=== PATIENT | female | born 1985 | race Caucasian/White ===

== ENCOUNTER 2017-02-07 01:11 | Emergency (ER) | payer OTHER ==
[~2017-02-07] VITALS: Ht 160 cm; Wt 74.0 kg
[2017-02-07 01:17] VITALS: Ht 160 cm; Wt 74.0 kg
[2017-02-07] MEDS ORDERED: SOD CHLORIDE 0.9% 1,000 ML IV STA (01:29)
[2017-02-07] MEDS ORDERED: KETOROLAC 30 MG INJ IV STA (01:29)
[2017-02-07] MEDS ORDERED: ONDANSETRON 4 MG INJ IV STA (01:29)
[2017-02-07 02:14] LABS: BASOPHIL # 0.1 10^3/ul (0.0-0.1); BASOPHILS % 0.5 % (0.0-2.0); EOSINOPHILS # 0.2 10^3/ul (0.0-0.5); EOSINOPHILS % 1.8 % (0.0-7.0); HEMOGLOBIN 13.3 g/dl (12.0-16.0); LYMPHOCYTES # 3.4 10^3/ul (0.8-2.9); LYMPHOCYTES % 31.5 % (15.0-51.0); MEAN CORPUSCULAR HEMOGLOBIN 30.4 pg (29.0-33.0); MEAN CORPUSCULAR HGB CONC 33.3 g/dl (32.0-37.0); MEAN CORPUSCULAR VOLUME 91.3 fl (82.0-101.0); MEAN PLATELET VOLUME 11.4 fl (7.4-10.4); MONOCYTE # 0.8 10^3/ul (0.3-0.9); NEUTROPHIL # 6.2 10^3/ul (1.6-7.5); NEUTROPHILS % 57.9 % (39.0-77.0); PLATELET COUNT 257 10^3/UL (140-415); RED BLOOD COUNT 4.38 10^6/ul (4.20-5.40); RED CELL DISTRIBUTION WIDTH 13.8 % (11.5-14.5); WHITE BLOOD COUNT 10.8 10^3/ul (4.8-10.8)
[2017-02-07 02:24] LABS: ADD UMIC NO; UR ASCORBIC ACID NEGATIVE (NEGATIVE); UR BILIRUBIN (Dip) NEGATIVE (NEGATIVE); UR BLOOD (Dip) NEGATIVE (NEGATIVE); UR CLARITY CLEAR (CLEAR); UR COLOR STRAW (YELLOW); UR GLUCOSE (Dip) NEGATIVE (NEGATIVE); UR KETONES (Dip) NEGATIVE (NEGATIVE); UR LEUKOCYTE ESTERASE (Dip) NEGATIVE Leu/ul (NEGATIVE); UR NITRITE (Dip) NEGATIVE (NEGATIVE); UR SPECIFIC GRAVITY (Dip) 1.009 (1.003-1.030); UR TOTAL PROTEIN (Dip) NEGATIVE (NEGATIVE); UR UROBILINOGEN (Dip) NEGATIVE (NEGATIVE)
[2017-02-07 02:34] LABS: ALBUMIN 4.4 g/dl (3.3-4.9); ALBUMIN/GLOBULIN RATIO 1.29; BILIRUBIN,INDIRECT 0.4 mg/dl (0-1.1); BILIRUBIN,TOTAL 0.4 mg/dl (0.2-1.3); CALCIUM 9.3 mg/dl (8.4-10.2); CREATININE 0.68 mg/dl (0.44-1.00); POTASSIUM 3.8 mmol/L (3.5-5.1); TOTAL PROTEIN 7.8 g/dl (6.1-8.1)
--- NOTE | 2017-02-07 02:42 | ERD ---
ER Documentation Chief Complaint Date/Time DATE: 02/07/17 TIME: 02:40 Chief Complaint LLQ PAIN X2DAYS HPI This is a 32-year-old female who presents to the emergency room for evaluation of abdominal pain. The patient states she has had abdominal pain for the past 2 hours and describes as a crampy feeling localized all of her abdomen associated with mild nausea. No vomiting or diarrhea. This patient's is here who states that they ate [employer] food in the patient's did have diarrhea and some abdominal cramping. ROS All systems reviewed and are negative except as per history of present illness. Allergies Allergies: Coded Allergies: No Known Allergy (Verified Allergy, Mild, NONE, 09/16/06) PMhx/Soc Medical and Surgical Hx: pt denies Medical Hx, pt denies Surgical Hx History of Surgery: No Anesthesia Reaction: No Hx Neurological Disorder: No Hx Respiratory Disorders: No Hx Cardiac Disorders: No Hx Psychiatric Problems: No Hx Miscellaneous Medical Probl: No Hx Alcohol Use: No Hx Substance Use: No Hx Tobacco Use: No Smoking Status: Never smoker Physical Exam Vitals Vital Signs Date Time Temp Pulse Resp B/P Pulse Ox O2 Delivery O2 Flow Rate FiO2 02/07/17 02:01 98.8 62 18 109/68 100 02/07/17 01:17 97.9 63 16 121/77 100 Physical Exam INITIAL VITAL SIGNS: Reviewed by me GENERAL: The patient is well developed and appropriate for usual state of health in no apparent distress HEENT: Pupils equal, round, and reactive to light. EOMI. There is no scleral icterus. NECK: C-spine is soft and supple, there is no meningismus. There is no cervical lymphadenopathy. LUNGS: Clear to auscultation bilaterally. There are no rales, wheezes or rhonchi. HEART: Regular rate and rhythm, no murmurs, clicks, rubs or gallops. ABDOMEN: Mild epigastric tenderness to palpation, nondistended. There are bowel sounds in all four quadrants. No rebound or guarding. EXTREMITIES: There is no peripheral cyanosis or edema. No focal swelling or erythema. NEUROLOGICAL: The patient moves all four extremities with 5/5 strength. Cranial nerves II - XII are intact. Normal gait. Alert and oriented SKIN: There is no apparent rash or petechiae. HEME/LYMPHATIC: There is no evidence of excessive bruising or lymphedema. PSYCHIATRIC: The patient does not appear anxious or depressed. Result Diagram: 02/07/17 0135 02/07/17 0135 Results 24 hrs Laboratory Tests Test 02/07/17 01:35 White Blood Count 10.810^3/ul Red Blood Count 4.3810^6/ul Hemoglobin 13.3g/dl Hematocrit 40.0% Mean Corpuscular Volume 91.3fl Mean Corpuscular Hemoglobin 30.4pg Mean Corpuscular Hemoglobin Concent 33.3g/dl Red Cell Distribution Width 13.8% Platelet Count 87907^3/UL Mean Platelet Volume 11.4fl Neutrophils % 57.9% Lymphocytes % 31.5% Monocytes % 7.0% Eosinophils % 1.8% Basophils % 0.5% Nucleated Red Blood Cells % 0.0/100WBC Neutrophils # 6.210^3/ul Lymphocytes # 3.410^3/ul Monocytes # 0.810^3/ul Eosinophils # 0.210^3/ul Basophils # 0.110^3/ul Nucleated Red Blood Cells # 0.010^3/ul Urine Color STRAW Urine Clarity CLEAR Urine pH 8.0 Urine Specific Hunter 1.009 Urine Ketones NEGATIVEmg/dL Urine Nitrite NEGATIVEmg/dL Urine Bilirubin NEGATIVEmg/dL Urine Urobilinogen NEGATIVEmg/dL Urine Leukocyte Esterase NEGATIVELeu/ul Urine Hemoglobin NEGATIVEmg/dL Urine Glucose NEGATIVEmg/dL Urine Total Protein NEGATIVEmg/dl Urine Test Pending Sodium Level 145mmol/L Potassium Level 3.8mmol/L Chloride Level 103mmol/L Carbon Dioxide Level 26mmol/L Anion Gap 20 Blood Urea Nitrogen 13mg/dl Creatinine 0.68mg/dl Glucose Level 79mg/dl Calcium Level 9.3mg/dl Total Bilirubin 0.4mg/dl Direct Bilirubin 0.00mg/dl Indirect Bilirubin 0.4mg/dl Aspartate Amino Transf (AST/SGOT) 20IU/L Alanine Aminotransferase (ALT/SGPT) 35IU/L Alkaline Phosphatase 69IU/L Total Protein 7.8g/dl Albumin 4.4g/dl Globulin 3.40g/dl Albumin/Globulin Ratio 1.29 Lipase 101U/L Current Medications Medications (Trade) Dose Ordered Sig/Debbie Route PRN Reason Start Time Stop Time Status Last Admin Dose Admin Sodium Chloride (NS) 1,000 ml @ 1,000 mls/hr Q1H STAT IV 02/07/17 01:29 02/07/17 02:28 DC 02/07/17 01:46 Ondansetron HCl (Zofran Inj) 4 mg ONCE STAT IV 02/07/17 01:29 02/07/17 01:30 DC 02/07/17 01:46 Ketorolac Tromethamine (Toradol) 30 mg ONCE STAT IV 02/07/17 01:29 02/07/17 01:31 DC 02/07/17 01:46 Procedures/MDM this 32-year-old female presents to the ER for evaluation of abdominal pain. The patient states her abdominal pain is been present for the past 2 hours. This patient does not have a fever, she appears hemodynamically stable and nontoxic. I did obtain lab work on this patient which is within normal limits. The patient has no signs of fever, no signs of peritonitis. Her blood work does not reveal any leukocytosis, urinalysis is within normal limits. This patient was given Toradol in the emergency room and when I reevaluated this patient she states she is feeling much better at this time. The patient was given 1 L fluids and Zofran as well. This patient likely suffering from gastritis. The patient will be discharged home with a prescription for [place], and Zofran. Departure Diagnosis: Primary Impression: Abdominal pain Additional Impression: Gastritis Condition: Stable PAZ LOPEZ DO Feb 07, 2017 02:42
[2017-02-07 02:43] VITALS: BP 111/77; PULSE 65; RESP 18; TEMP 98.6
[2017-02-07] MEDS ORDERED: HYDR-906 PO (02:43)
[2017-02-07] MEDS ORDERED: FAMO-96 PO (02:43)
[2017-02-07] MEDS ORDERED: ONDA4TAB8 PO (02:43)
== END 2017-02-07 03:03 | disposition home or self-care (01) ==
LOC: E/R 01:11
DX: R10.13 Epigastric pain (principal); K29.70 Gastritis, unspecified, without bleeding; R11.0 Nausea
CPT/HCPCS: 80053; 81003; 83690; 84703; 85025; 96374; 96375; J1885; J2405; J7030; Z7502